=== PATIENT | female | born 1965 | race Two or more races ===

== ENCOUNTER 2022-03-12 14:24 | Emergency (ER) | payer MEDICAID ==
[~2022-03-12] VITALS: Ht 172.7 cm; Wt 68.0 kg
[~2022-03-12 14:24] MED LIST: ATEN-60; DIPH25CA66; FLUO-125; GABA300C10; HYDR-2595; METR500T14; NAPR500T31; PEPCID; PRED1PAK11; TRAM50TA2
[2022-03-12 15:01] VITALS: BP 162/92
== END 2022-03-12 18:30 | disposition home or self-care (01) ==
LOC: ER 14:24
DX: M79.605 Pain in left leg (principal); M79.10 Myalgia, unspecified site; I10 Essential (primary) hypertension
CPT/HCPCS: 72131; 93971